=== PATIENT | male | born 2000 | race African-American/Black ===

== ENCOUNTER 2022-12-26 21:36 | Emergency (ER) | payer SELFPAY ==
[~2022-12-26] VITALS: Ht 167.6 cm; Wt 68.5 kg
[2022-12-26 21:47] VITALS: BP_SYST 125
[2022-12-26 23:01] LABS: BASOPHILS % (AUTO) 0.3 % (0.0-2.0); EOSINOPHILS # (AUTO) 0.1 K/uL (0.0-0.4); EOSINOPHILS % (AUTO) 0.9 % (0.0-4.0); HEMATOCRIT 45.1 % (36-54); HEMOGLOBIN 14.8 g/dL (14.0-18.0); LYMPHOCYTES # (AUTO) 1.9 K/uL (1.0-5.5); MEAN CORPUSCULAR HEMOGLOBIN 28 pg (27-31); MEAN CORPUSCULAR HGB CONC 33 % (32-36); MEAN CORPUSCULAR VOLUME 86 fL (79.0-98.0); MONOCYTES # (AUTO) 1.1 K/uL (0.0-1.0); MONOCYTES % (AUTO) 17.4 % (1.7-9.3); NEUTROPHILS # (AUTO) 3.3 K/uL (1.8-7.7); NEUTROPHILS % (AUTO) 51.4 % (40.0-70.0); PLATELET COUNT (AUTO) 277 K/uL (130-430); RED BLOOD CELL COUNT(AUTO) 5.26 MIL/uL (4.2-6.2); RED CELL DISTRIBUTION WIDTH 14.6 % (9.0-15.0); WHITE BLOOD COUNT (AUTO) 6.4 K/uL (4.8-10.8)
[2022-12-26 23:06] LABS: BILIRUBIN,URINE NEGATIVE (NEGATIVE); BLOOD, URINE NEGATIVE (NEGATIVE); GLUCOSE,URINE NEGATIVE (NEGATIVE); KETONES,URINE NEGATIVE (NEGATIVE); LEUKOCYTE ESTERASE ,URINE NEGATIVE (NEGATIVE); NITRITE, URINE NEGATIVE (NEGATIVE); PROTEIN URINE NEGATIVE (NEGATIVE); UROBILINOGEN,URINE 0.2 (0.2-1.0)
[2022-12-26 23:10] LABS: CALCIUM 9.4 mg/dL (8.4-11.0); CREATININE 1.16 mg/dL (0.55-1.30)
[2022-12-26 23:14] LABS: ALBUMIN 4.1 g/dL (3.4-4.8); TOTAL BILIRUBIN 0.2 mg/dL (0.0-1.0)
[2022-12-26 23:31] LABS: CLARITY/URINE HAZY (CLEAR); COLOR,URINE YELLOW (YELLOW)
[2022-12-26] MEDS ORDERED: NACL 0.9% 1,000 ML IV ONE (23:45)
[2022-12-27] MEDS ORDERED: AUG875 PO (01:02)
[2022-12-27] MEDS ORDERED: LOPE1TAB46 PO (01:03)
[2022-12-27 01:29] VITALS: BP_SYST 136
== END 2022-12-27 01:29 | disposition home or self-care (01) ==
LOC: SED 21:36
DX: K52.9 Noninfective gastroenteritis and colitis, unspecified (principal); R10.11 Right upper quadrant pain; Z79.899 Other long term (current) drug therapy
CPT/HCPCS: 99284; 80053; 83690; 85025; 36415; 81003; 96360; 76700; J7030